=== PATIENT | female | born 1950 | race Caucasian/White ===

== ENCOUNTER → 2016-12-13 | Outpatient (CLI) | payer MEDICARE, OTHER ==
[~2016-12-13] MED LIST: AMOXICILLIN 50500 MG PO; BIOFLAX1000 MG PO; BROVANA15 MCG/2 M IH; CALCIUM 600 PLU1 TAB PO; CIPRO 500MG TA500 MG PO; EPA FISH OIL1000 MG PO; ESTRACE 1MG1 MG/TAB PO; FLOMAX0.4 MG PO; GLUCOSAMINE CHO1 CAP PO; LEVAQUIN 5500 MG/TA1 PO; LEVOTHYROXINE PO; LEVOXYL0.088 MG PO; LEVOXYL0.1 MG PO; MULTIVITAMIN FO1 CAP PO; NIACIN FLUSH F400 MG PO; NIACIN FLUSH FR1 CAP PO; NIACIN50 MG PO; NIACIN500 M3 PO; NORCO 325 MG-51 TAB PO; PERCOCET 325 MG1 TA2 PO; PERCR 7.5 PO; PHENERGAN 25 TA25 MG PO; PHENERGAN25 MG RC; PREDNISONE20 MG PO; PREMARIN0.625 MG PO; PRILOSEC10 MG PO; PULMICORT0.25 MG/2 IH; PYRIDIUM 100MG100 MG PO; RESTASIS0.05% OP; RESTASIS0.05% TOP; RT SPIRIVA18 MCG IH; SENOKOT S 50 MG1 TAB PO; SINGULAIR; SINGULAIR 110 MG/TAB PO; THEO-24 30300 MG/CAP PO; TOPAMAX50 MG PO; TOPIRAMATE; VITAMIN D1000 IU PO; ZYRTEC; ZYRTEC 10MG10 MG PO
== END ==
LOC: MC.RAD 09:51
DX: Z12.31 Encounter for screening mammogram for malignant neoplasm of breast (principal)

== ENCOUNTER 2017-06-22 11:01 | Emergency (ER) | payer MEDICARE, OTHER ==
[~2017-06-22] VITALS: Ht 157.5 cm; Wt 68.0 kg
[2017-06-22 11:16] VITALS: TEMP 99.1
[2017-06-22 11:54] LABS: PH 5 (5-8); SQUAMOUS EPITHELIAL 0-2 /hpf; URINE APPEARANCE Clear; URINE BACTERIA Rare /hpf; URINE BILIRUBIN Negative (NEGATIVE); URINE BLOOD 3+ (NEGATIVE); URINE COLOR Yellow; URINE GLUCOSE Negative (NEGATIVE); URINE KETONE Negative (NEGATIVE); URINE RBC >50 /hpf; URINE UROBILINOGEN Negative (NEGATIVE)
[2017-06-22 12:14] LABS: BASO # 0.1 (0.0-0.2); BASO % 1.5 % (0.0-2.0); EOS # 0.1 (0.0-0.7); EOS % 1.1 % (0-4.0); GRAN # 6.3 (1.4-6.5); GRAN % 77.1 % (42.2-75.2); HEMATOCRIT 46.2 % (37.0-47.0); HEMOGLOBIN 15.6 g/dl (12.5-16.0); LYMPH # 0.9 (1.2-3.4); LYMPH % 10.8 % (20.0-51.0); MEAN CELL VOLUME 96 fl (80.0-100.0); MEAN CORPUSCULAR HEMOGLOBIN 32 pg (27.0-31.0); MEAN CORPUSCULAR HGB CONC 34 g/dl (33.0-37.0); MEAN PLATELET VOLUME 9.6 fl (7.4-10.4); MONO # 0.8 (0.1-0.6); MONO % 9.3 % (1.7-9.3); PLATELET COUNT 190 K/mm3 (130-400); RED BLOOD COUNT 4.84 M/mm3 (4.10-5.30); REDCELL DISTRIBUTION WIDTH-CV 12.5 % (11.5-14.5); WHITE BLOOD COUNT 8.1 K/mm3 (4.8-10.8)
[2017-06-22 12:33] LABS: ADJUSTED CALCIUM 9.9 mg/dL (8.4-10.2); ALANINE AMINOTRANSFERASE 32 U/L (9-52); ALBUMIN 4.6 gm/dL (3.5-5.0); ALKALINE PHOSPHATASE 94 U/L (50-136); ANION GAP 14 mmol/L (7-16); BILIRUBIN,TOTAL 0.9 mg/dL (0.0-1.0); BLOOD UREA NITROGEN 19 mg/dL (7-17); C-REACTIVE PROTEIN 1.2 mg/dL (0.0-0.9); CALCIUM 10.4 mg/dL (8.4-10.2); CARBON DIOXIDE 21 mmol/L (22-30); CHLORIDE 107 mmol/L (98-107); CREATININE, serum 1.59 mg/dL (0.52-1.25); GLUCOSE 110 mg/dL (74-106); LIPASE 119 U/L (23-300); SODIUM 142 mmol/L (137-145); TOTAL PROTEIN 8.1 gm/dL (6.4-8.2)
[2017-06-22] MEDS ORDERED: RT SPIRIVA18 MCG IH (12:36)
[2017-06-22] MEDS ORDERED: BIAXIN 250MG T250 M1 PO (12:42)
[2017-06-22] MEDS ORDERED: ETHAMBUTOL HYD400 MG PO (12:42)
[2017-06-22] MEDS ORDERED: ETHAMBUTOL HYD100 MG PO (12:43)
[2017-06-22 12:48] LABS: TROPONIN-I < 0.012 ng/mL (0.000-0.034)
[2017-06-22] MEDS ORDERED: FLOMAX 0.40.4 MG/CAP PO (13:28)
[2017-06-22] MEDS ORDERED: ZOFRAN 4MG T4 MG/TAB PO (13:28)
[2017-06-22] MEDS ORDERED: MACROBID 1100 MG/CAP PO (13:28)
[2017-06-22] MEDS ORDERED: NORCO 325 MG-51 TAB PO (13:28)
[2017-06-22 13:54] VITALS: BP 131/84; PULSE 72
[2017-06-24] MEDS ORDERED: MACROBID 1100 MG/CAP PO (19:50)
== END 2017-06-22 13:54 | disposition home or self-care (01) ==
LOC: COL.ER 11:01
PROVIDERS: Emergency Medicine
DX: N20.2 Calculus of kidney with calculus of ureter (principal); J44.9 Chronic obstructive pulmonary disease, unspecified; Z87.442 Personal history of urinary calculi

== ENCOUNTER 2017-06-30 06:28 | Day surgery (SDC) | payer MEDICARE, OTHER ==
[~2017-06-30] VITALS: Ht 157.5 cm; Wt 84.9 kg
[~2017-06-30 06:28] MED LIST changes: +BIAXIN 250MG T250 M1 PO; +ETHAMBUTOL HYD100 MG PO; +ETHAMBUTOL HYD400 MG PO; +FLOMAX 0.40.4 MG/CAP PO; +MACROBID 1100 MG/CAP PO; +ZOFRAN 4MG T4 MG/TAB PO
[2017-06-30 07:14] VITALS: BP 127/69; PULSE 88; TEMP 98.8
[2017-06-30] MEDS ORDERED: RT SPIRIVA18 MCG IH (07:25)
[2017-06-30] MEDS ORDERED: TYLENOL 500MG500 MG PO (07:36)
[2017-06-30 09:30] VITALS: BP 109/63; PULSE 80; TEMP 97.3
[2017-06-30 09:45] VITALS: BP 104/58; PULSE 80
[2017-06-30 09:59] VITALS: TEMP 97.5
[2017-06-30 10:00] VITALS: BP 110/50; PULSE 80
[2017-06-30 10:15] VITALS: BP 103/59; PULSE 78
== END 2017-06-30 10:50 | disposition home or self-care (01) ==
LOC: SDCO 06:28
DX: N20.1 Calculus of ureter (principal); J30.9 Allergic rhinitis, unspecified; J45.909 Unspecified asthma, uncomplicated; Z90.49 Acquired absence of other specified parts of digestive tract; Z90.710 Acquired absence of both cervix and uterus; Z96.0 Presence of urogenital implants; Z82.49 Family history of ischemic heart disease and other diseases of the circulatory system; Z83.3 Family history of diabetes mellitus; Z80.6 Family history of leukemia
CPT/HCPCS: C1769; J0690; J1100; J2405; J2704; J2765; J3010; J7120

== ENCOUNTER → 2018-01-12 | Outpatient (CLI) | payer MEDICARE, OTHER ==
[~2018-01-12] MED LIST changes: +TYLENOL 500MG500 MG PO
== END ==
LOC: MC.RAD 10:41
DX: Z12.31 Encounter for screening mammogram for malignant neoplasm of breast (principal)

== ENCOUNTER → 2018-04-11 | Outpatient (CLI) | payer MEDICARE, OTHER | LOC: ZCOL.LAB 15:59 | DX: H60.91 Unspecified otitis externa, right ear (principal) ==

== ENCOUNTER → 2018-07-20 | Outpatient (CLI) | payer MEDICARE, OTHER | LOC: ZCOL.LAB 14:14 | DX: H60.91 Unspecified otitis externa, right ear (principal) ==

== ENCOUNTER 2018-12-09 23:05 | Emergency (ER) | payer MEDICARE, OTHER, BC ==
[~2018-12-09] VITALS: Ht 157.5 cm; Wt 70.5 kg
[2018-12-09 23:10] VITALS: TEMP 98.5
[2018-12-10] MEDS ORDERED: AMOXICILLIN 8751 TAB PO (01:38)
[2018-12-10] MEDS ORDERED: VENTOLIN0.09 MG IH (01:38)
[2018-12-10] MEDS ORDERED: PREDNISONE20 MG PO (01:38)
[2018-12-10 03:33] LABS: BASO # 0.1 (0.0-0.2); BASO % 0.8 % (0.0-2.0); EOS # 0.1 (0.0-0.7); GRAN # 6.2 (1.4-6.5); GRAN % 80.2 % (42.2-75.2); HEMOGLOBIN 15.4 g/dl (12.5-16.0); LYMPH # 0.8 (1.2-3.4); LYMPH % 10.1 % (20.0-51.0); MEAN CELL VOLUME 95 fl (80.0-100.0); MEAN CORPUSCULAR HEMOGLOBIN 32 pg (27.0-31.0); MEAN CORPUSCULAR HGB CONC 34 g/dl (33.0-37.0); MEAN PLATELET VOLUME 9.8 fl (7.4-10.4); MONO # 0.6 (0.1-0.6); MONO % 7.6 % (1.7-9.3); PLATELET COUNT 176 K/mm3 (130-400); RED BLOOD COUNT 4.87 M/mm3 (4.10-5.30); REDCELL DISTRIBUTION WIDTH-CV 13.1 % (11.5-14.5)
[2018-12-10 03:54] LABS: ALBUMIN 4.3 gm/dL (3.5-5.0); BILIRUBIN,TOTAL 0.5 mg/dL (0.0-1.0); CALCIUM 10.5 mg/dL (8.4-10.2); CREATININE, serum 1.26 mg/dL (0.52-1.25); POTASSIUM 4.2 mmol/L (3.4-5.0); TOTAL PROTEIN 8.1 gm/dL (6.4-8.2)
[2018-12-10 04:20] LABS: TROPONIN-I 0.044 ng/mL (0.000-0.035)
[2018-12-10] MEDS ORDERED: BACTRIM DS 8001 TAB PO (04:33)
[2018-12-10] MEDS ORDERED: BROVANA15 MCG/2 M (04:33)
[2018-12-10] MEDS ORDERED: CALCIUM 600MG+D1 TAB PO (04:35)
[2018-12-10] MEDS ORDERED: ZYRTEC 10MG10 MG PO (04:35)
[2018-12-10] MEDS ORDERED: MULTI VITAMINS1 TAB PO (04:38)
[2018-12-10] MEDS ORDERED: DECADRON OPHTH D5 ML OT (04:49)
[2018-12-10 09:12] VITALS: BP 121/64; PULSE 100
== END 2018-12-10 09:40 | disposition short-term general hospital (02) ==
LOC: COL.ER 23:05
PROVIDERS: Emergency Medicine
DX: R06.02 Shortness of breath (principal); R07.89 Other chest pain; J44.9 Chronic obstructive pulmonary disease, unspecified
CPT/HCPCS: A4216; J0696; J7512

== ENCOUNTER → 2019-02-13 | Outpatient (CLI) | payer MEDICARE, OTHER ==
[~2019-02-13] MED LIST changes: +AMOXICILLIN 8751 TAB PO; +BACTRIM DS 8001 TAB PO; +BROVANA15 MCG/2 M; +CALCIUM 600MG+D1 TAB PO; +DECADRON OPHTH D5 ML OT; +MULTI VITAMINS1 TAB PO; +VENTOLIN0.09 MG IH
== END ==
LOC: MC.RAD 15:16
DX: Z12.31 Encounter for screening mammogram for malignant neoplasm of breast (principal)

== ENCOUNTER → 2019-04-11 | Outpatient (CLI) | payer MEDICARE, OTHER | LOC: COL.RAD 08:29 | DX: Z01.812 Encounter for preprocedural laboratory examination (principal); R41.82 Altered mental status, unspecified; R47.81 Slurred speech | CPT/HCPCS: A9585 ==

== ENCOUNTER 2020-01-10 16:22 | Emergency (ER) | payer MEDICARE, OTHER ==
[~2020-01-10] VITALS: Ht 157.5 cm; Wt 60.0 kg
[2020-01-10 16:37] VITALS: TEMP 98.7
[2020-01-10 16:54] LABS: BASO # 0.1 (0.0-0.2); BASO % 1.4 % (0.0-2.0); EOS # 0.2 (0.0-0.7); EOS % 3.9 % (0-4.0); GRAN # 3.3 (1.4-6.5); GRAN % 58.3 % (42.2-75.2); HEMATOCRIT 47.4 % (37.0-47.0); HEMOGLOBIN 15.6 g/dl (12.5-16.0); LYMPH # 1.5 (1.2-3.4); MEAN CELL VOLUME 96 fl (80.0-100.0); MEAN CORPUSCULAR HEMOGLOBIN 32 pg (27.0-31.0); MEAN CORPUSCULAR HGB CONC 33 g/dl (33.0-37.0); MEAN PLATELET VOLUME 9.3 fl (7.4-10.4); MONO # 0.6 (0.1-0.6); MONO % 10.2 % (1.7-9.3); PLATELET COUNT 216 K/mm3 (130-400); RED BLOOD COUNT 4.92 M/mm3 (4.10-5.30)
[2020-01-10 17:05] LABS: ALANINE AMINOTRANSFERASE 30 U/L (4-34); ALBUMIN 4.6 gm/dL (3.5-5.0); ALKALINE PHOSPHATASE 79 U/L (50-136); ANION GAP 9 mmol/L (7-16); AST,SGOT 38 U/L (15-37); BILIRUBIN,TOTAL 0.7 mg/dL (0.0-1.0); BLOOD UREA NITROGEN 15 mg/dL (7-17); CALCIUM 10.1 mg/dL (8.4-10.2); CARBON DIOXIDE 25 mmol/L (22-30); CHLORIDE 106 mmol/L (98-107); CREATININE, serum 1.04 (0.52-1.25); GLUCOSE 134 mg/dL (74-106); LIPASE 369 U/L (23-300); POTASSIUM 3.7 mmol/L (3.4-5.0); SODIUM 140 mmol/L (137-145); TOTAL PROTEIN 8.1 gm/dL (6.4-8.2)
[2020-01-10 17:12] LABS: C-REACTIVE PROTEIN < 0.5 mg/dL (0.0-0.9)
[2020-01-10 17:40] LABS: COLLECTION METHOD CLEAN CATCH
[2020-01-10 17:49] LABS: AMORPHOUS CRYSTAL Present /uL; PH 7 (5-8); SQUAMOUS EPITHELIAL None Seen /hpf; URINE APPEARANCE Hazy; URINE BACTERIA Rare /hpf; URINE BILIRUBIN Negative (NEGATIVE); URINE BLOOD Negative (NEGATIVE); URINE COLOR Yellow; URINE GLUCOSE Negative (NEGATIVE); URINE KETONE Negative (NEGATIVE); URINE LEUKOCYTE ESTERASE Negative (NEGATIVE); URINE NITRATE Negative (NEGATIVE); URINE PROTEIN(semi-quant) Negative (NEGATIVE); URINE RBC 0-2 /hpf; URINE UROBILINOGEN Negative (NEGATIVE)
[2020-01-10] MEDS ORDERED: NORCO 325 MG-51 TAB PO (19:20)
[2020-01-10] MEDS ORDERED: ZOFRAN 4MG T4 MG/TAB PO (19:20)
[2020-01-10] MEDS ORDERED: FLOMAX 0.40.4 MG/CAP PO (19:20)
[2020-01-10 19:34] VITALS: BP 115/60; PULSE 72
== END 2020-01-10 19:35 | disposition home or self-care (01) ==
LOC: COL.ER 16:22
PROVIDERS: Emergency Medicine
DX: N20.1 Calculus of ureter (principal); G43.909 Migraine, unspecified, not intractable, without status migrainosus; E03.9 Hypothyroidism, unspecified; Z90.89 Acquired absence of other organs; Z90.722 Acquired absence of ovaries, bilateral; Z87.442 Personal history of urinary calculi
CPT/HCPCS: J7030; Q9967

== ENCOUNTER → 2020-03-26 | Outpatient (CLI) | payer MEDICARE, OTHER | LOC: MC.RAD 10:53 | DX: Z12.31 Encounter for screening mammogram for malignant neoplasm of breast (principal) ==

== ENCOUNTER → 2020-04-15 | Outpatient (CLI) | payer MEDICARE, OTHER | LOC: COL.RAD 07:41 | DX: K30 Functional dyspepsia (principal) | CPT/HCPCS: A9541 ==

== ENCOUNTER 2020-06-24 07:35 | Day surgery (SDC) | payer MEDICARE, OTHER ==
[~2020-06-24] VITALS: Ht 157.5 cm; Wt 62.7 kg
[2020-06-24 08:06] VITALS: BP 130/79; PULSE 83; TEMP 98.5
--- NOTE | 2020-06-24 08:16 | NUR ---
TO RM AT 0737- CALL LIGHT IN REACH FRIEND LOLI WILL BOTTOM SANDER PATIENT
[2020-06-24] MEDS ORDERED: FOSAMAX 70MG TA70 MG PO (08:22)
[2020-06-24] MEDS ORDERED: LIPITOR 40MG TA40 MG PO (08:22)
[2020-06-24] MEDS ORDERED: PLAVIX 75MG TAB75 MG PO (08:24)
[2020-06-24] MEDS ORDERED: FISH OIL 1000MG1 CAP PO (08:27)
[2020-06-24] MEDS ORDERED: LEVOXYL0.075 MG PO (08:28)
[2020-06-24] MEDS ORDERED: REGLAN 5MG T5 MG/TAB PO (08:29)
[2020-06-24] MEDS ORDERED: MUCINEX 60600 MG/TA1 PO (08:30)
[2020-06-24] MEDS ORDERED: SALAGEN 5MG TAB5 MG PO (08:31)
[2020-06-24] MEDS ORDERED: RESTASIS MULTI5.5 ML OU (08:32)
[2020-06-24] MEDS ORDERED: STIOLTO RESPIMAT4 GM IH (08:34)
[2020-06-24] MEDS ORDERED: OXYGEN MC (08:37)
[2020-06-24 09:15] VITALS: BP 143/93; PULSE 70; TEMP 98.2
--- NOTE | 2020-06-24 09:15 | NUR ---
TO BAY3 PER CART FROM ENDOSCOPY. AMBULATED TO BATHROOM. FROM BATHROOM AMBULATED TO RM AND TOLERATED WELL.. DR CARDONA TALKED WITH PATIENT IN PROCEDURE RM. RECEIVED WATER AND ADAM. PUDDING.
[2020-06-24 09:30] VITALS: BP 138/83; PULSE 66
--- NOTE | 2020-06-24 09:30 | NUR ---
ATE 100% AND TOLERATED WELL. RECEIVED DISCHARGE INSTRUCTIOINS AND VERBALIZED UNDERSTANDING. DRESSED SELF AND CALLED FRIEND FOR RIDE.
--- NOTE | 2020-06-24 09:45 | NUR ---
DISCHARGED PER WC BY NURSING STAFF TO PRIVATE CAR IN CARE OF FRIEND LOLI.
== END 2020-06-24 09:54 | disposition home or self-care (01) ==
LOC: SDCO 07:35
DX: Z12.11 Encounter for screening for malignant neoplasm of colon (principal); Z86.010 Personal history of colon polyps; E03.9 Hypothyroidism, unspecified; R63.4 Abnormal weight loss; R63.0 Anorexia; K31.84 Gastroparesis; Z20.828 Contact with and (suspected) exposure to other viral communicable diseases; Z79.899 Other long term (current) drug therapy
CPT/HCPCS: J7030

== ENCOUNTER → 2021-07-16 | Outpatient (CLI) | payer MEDICARE ==
[~2021-07-16] MED LIST changes: +FISH OIL 1000MG1 CAP PO; +FOSAMAX 70MG TA70 MG PO; +LEVOXYL0.075 MG PO; +LIPITOR 40MG TA40 MG PO; +MUCINEX 60600 MG/TA1 PO; +OXYGEN MC; +PLAVIX 75MG TAB75 MG PO; +REGLAN 5MG T5 MG/TAB PO; +RESTASIS MULTI5.5 ML OU; +SALAGEN 5MG TAB5 MG PO; +STIOLTO RESPIMAT4 GM IH
== END ==
LOC: MC.RAD 11:13
DX: Z12.31 Encounter for screening mammogram for malignant neoplasm of breast (principal)

== ENCOUNTER → 2023-08-05 | Outpatient (CLI) | payer MEDICARE, OTHER | LOC: CANSCHCLI → MC.RAD 13:00 | DX: Z12.31 Encounter for screening mammogram for malignant neoplasm of breast (principal) ==

== ENCOUNTER 2023-09-13 06:52 | Day surgery (SDC) | payer MEDICARE, OTHER ==
[~2023-09-13] VITALS: Ht 157.5 cm; Wt 75.8 kg
[2023-09-13] MEDS ORDERED: BREZTRI AEROS10.7 GM IH (07:09)
[2023-09-13] MEDS ORDERED: DUPIXENT300 MG/2 M SQ (07:13)
[2023-09-13] MEDS ORDERED: PRILOSEC 20MG20 MG PO (07:16)
[2023-09-13 09:05] VITALS: BP 111/60; PULSE 79; TEMP 97.1
[2023-09-13 09:20] VITALS: BP 120/77; PULSE 59
[2023-09-13 09:35] VITALS: BP 124/72; PULSE 67
[2023-09-13 11:32] VITALS: BP 130/78; PULSE 75; TEMP 98.7
--- NOTE | 2023-09-13 11:34 | NUR ---
0702 PT AMBULATORY TO BAY 1 W/ STEADY GAIT, BREATHING EVEN AND UNLABORED. PT IS ALERT AND ORIENTED. CONSENTS REVIEWED AND SIGNED BY PT. IV ESTABLISHED. LR INFUSING VIA GRAVITY AT KVO. CALL LIGHT IN REACH. WARM BLANKET PROVIDED.
--- NOTE | 2023-09-13 13:09 | NUR ---
0905: PATIENT TO BAY 1 FROM ENDO SUITE. AMBULATED FROM COT TO RECLINER X2. ALERT AND ORIENTED X4. REPORT RECEIVED. DENIES PAIN OR NAUSEA. REQUESTING BLUEBERRY MUFFIN AND WATER. VSS. BREATHING EVEN AND UNLABORED. WARM BLANKET PROVIDED. NO FURTHER NEEDS NOTED. CALL LIGHT IN REACH. RDBOLMED-GL-PHB AT BEDSIDE. 0920: PATIENT ALERT AND ORIENTED X4. TOLERATING MUFFIN AND WATER. VSS. DENIES PAIN OR NAUSEA. RESTING IN RECLINER. CALL LIGHT IN REACH. 0935: PATIENT ALERT AND ORIENTED X4. CONTINUES TO TOLERATE MUFFIN AND WATER. VSS. DENIES PAIN OR NAUSEA. RESTING IN RECLINER. CALL LIGHT IN REACH. 0945: DR. CARDONA IN TO SEE PATIENT AT THIS TIME. IV DC'D AT THIS TIME. 1000: DISCHARGE EDUCATION DONE AT THIS TIME. PATIENT STATED UNDERSTANDING OF INSTRUCTIONS. DISCHARGE PAPERWORK GIVEN TO PATIENT. DENIES ANY ASSISTANCE WITH DRESSING. 1005: PATIENT OFF UNIT PER WHEELCHAIR AT THIS TIME. PATIENT DISCHARGED TO HOME WITH FAMILY PER PERSONAL VEHICLE.
== END 2023-09-13 10:05 | disposition home or self-care (01) ==
LOC: SDCO 06:52
DX: Z12.11 Encounter for screening for malignant neoplasm of colon (principal); D12.2 Benign neoplasm of ascending colon; D12.3 Benign neoplasm of transverse colon; K64.0 First degree hemorrhoids; E03.9 Hypothyroidism, unspecified; G47.33 Obstructive sleep apnea (adult) (pediatric)
CPT/HCPCS: J2704; J7120

== ENCOUNTER 2024-02-06 19:12 | Emergency (ER) | payer MEDICARE, OTHER ==
[~2024-02-06] VITALS: Ht 157.5 cm; Wt 77.3 kg
[~2024-02-06 19:12] MED LIST changes: +BREZTRI AEROS10.7 GM IH; +DUPIXENT300 MG/2 M SQ; +PRILOSEC 20MG20 MG PO
[2024-02-06 19:15] VITALS: TEMP 97.9
[2024-02-06] MEDS ORDERED: Albuterol/Ipratropium 3 MG-0.5 MG/3 ML Neb Soln IH SCH (20:15)
[2024-02-06 20:31] LABS: BASO # 0.1 K/mm3 (0.0-0.2); EOS # 0.2 K/mm3 (0.0-0.7); EOS % 3.2 % (0.0-4.0); GRAN % 68.7 % (42.2-75.2); HEMATOCRIT 45.3 % (37.0-47.0); HEMOGLOBIN 14.9 g/dl (12.5-16.0); LYMPH % 16.2 % (20.0-51.0); MEAN CELL VOLUME 98 fl (80.0-100.0); MEAN CORPUSCULAR HEMOGLOBIN 32 pg (27-31); MEAN CORPUSCULAR HGB CONC 33 g/dl (33.0-37.0); MEAN PLATELET VOLUME 9.3 fl (7.4-10.4); MONO # 0.6 K/mm3 (0.1-0.6); MONO % 10.7 % (1.7-9.3); PLATELET COUNT 194 K/mm3 (130-400); RED BLOOD COUNT 4.62 M/mm3 (4.10-5.30); REDCELL DISTRIBUTION WIDTH-CV 12.9 % (11.5-14.5)
[2024-02-06 20:49] LABS: ALANINE AMINOTRANSFERASE 27 U/L (0-55); ALBUMIN 3.8 g/dL (3.4-4.8); ALKALINE PHOSPHATASE 85 U/L (40-150); ANION GAP 9 mmol/L (7-16); AST,SGOT 27 U/L (5-34); BILIRUBIN,TOTAL 0.5 mg/dL (0.2-1.2); BLOOD UREA NITROGEN 21 mg/dL (10-20); C-REACTIVE PROTEIN 0.11 mg/dL (0.00-0.50); CALCIUM 9.8 mg/dL (8.4-10.2); CHLORIDE 111 mEq/L (98-107); CREATININE, serum 0.89 mg/dL (0.57-1.11); GLUCOSE 106 mg/dL (70-99); MAGNESIUM 1.8 mg/dL (1.6-2.6); SODIUM 144 mEq/L (136-145); TOTAL PROTEIN 7.3 g/dl (6.2-8.1)
[2024-02-06 20:55] LABS: TROPONIN-I < 0.010 ng/mL (0.00-0.033)
[2024-02-06] MEDS ORDERED: PREDNISONE20 MG PO (22:08)
[2024-02-06] MEDS ORDERED: LEVAQUIN 750MG750 M1 PO (22:08)
[2024-02-06] MEDS ORDERED: levoFLOXacin 750 MG TAB PO ONE (22:15)
[2024-02-06] MEDS ORDERED: predniSONE 20 MG TAB PO ONE (22:15)
[2024-02-06 23:05] VITALS: BP 148/90; PULSE 66
== END 2024-02-06 23:08 | disposition home or self-care (01) ==
LOC: COL.ER 19:12
PROVIDERS: Emergency Medicine
DX: J44.1 Chronic obstructive pulmonary disease with (acute) exacerbation (principal)
CPT/HCPCS: J7512

== ENCOUNTER 2024-05-22 17:15 | Emergency (ER) | payer MEDICARE, OTHER ==
[~2024-05-22] VITALS: Ht 157.5 cm; Wt 83.2 kg
[~2024-05-22 17:15] MED LIST changes: +LEVAQUIN 750MG750 M1 PO
[2024-05-22 17:20] VITALS: TEMP 98.5
[2024-05-22 19:11] VITALS: BP 149/95; PULSE 82
== END 2024-05-22 19:11 | disposition home or self-care (01) ==
LOC: COL.ER 17:15
DX: S49.92XA Unspecified injury of left shoulder and upper arm, initial encounter (principal); Z79.02 Long term (current) use of antithrombotics/antiplatelets; W19.XXXA Unspecified fall, initial encounter; Y92.009 Unspecified place in unspecified non-institutional (private) residence as the place of occurrence of the external cause

== ENCOUNTER → 2024-07-03 | Outpatient (CLI) | payer MEDICARE | LOC: COL.RAD 14:30 | DX: I63.9 Cerebral infarction, unspecified (principal) ==

== ENCOUNTER 2024-07-13 09:46 | Day surgery (SDC) | payer MEDICARE, OTHER ==
[2024-07-13] VITALS (10 sets, daily range): BP systolic 105–152; BP diastolic 60–81; PULSE 75–82; TEMP 98.5
[~2024-07-13] VITALS: Ht 157.6 cm; Wt 81.1 kg
[~2024-07-13 09:46] MED LIST changes: +DUPIXENT200 MG/1.1 SQ; -DUPIXENT300 MG/2 M SQ; -LEVOXYL0.075 MG PO; +LR 1,000 ML IV SCH; -MUCINEX 60600 MG/TA1 PO; +MUCINEX1200 MG PO
[2024-07-13 10:54] LABS: HEMATOCRIT 40.5 % (37.0-47.0); HEMOGLOBIN 13.6 g/dl (12.5-16.0); MEAN CELL VOLUME 96 fl (80.0-100.0); MEAN CORPUSCULAR HEMOGLOBIN 32 pg (27-31); MEAN CORPUSCULAR HGB CONC 34 g/dl (33.0-37.0); MEAN PLATELET VOLUME 9.8 fl (7.4-10.4); PLATELET COUNT 171 K/mm3 (130-400); RED BLOOD COUNT 4.23 M/mm3 (4.10-5.30); REDCELL DISTRIBUTION WIDTH-CV 12.2 % (11.5-14.5)
[2024-07-13 11:10] LABS: CALCIUM 9.2 mg/dL (8.4-10.2); CREATININE, serum 0.94 mg/dL (0.57-1.11); POTASSIUM 3.8 mEq/L (3.5-4.5)
[2024-07-13 11:12] LABS: INR 1.1 (0.8-3.0); PROTHROMBIN TIME 11.6 SECONDS (9.7-12.8)
[2024-07-13] MEDS ORDERED: PROTONIX20 MG PO (11:58)
[2024-07-13] MEDS ORDERED: ZYRTEC 10MG10 MG PO (11:59)
[2024-07-13] MEDS ORDERED: PLETAL 100MG T100 MG PO (11:59)
[2024-07-13] MEDS ORDERED: ALBUTEROL1.25 MG/3 IH (12:05)
--- NOTE | 2024-07-13 16:20 | NUR ---
DC instructions reviewed with pt and daughter. Both express understanding. Pt has rested comfortably following procedure. First time out of be after bedrest period pt was assited by standby to toilet, gait steady. Pt was free of complaints with activity. She has been resting in bed or sitting up on edge of bed since. She ate pudding cups, muffin and sandwich. No issues swallowing. Respirations have been even and unlabored while resting, but pt did become short of breath walking back from toilet. This resolved shortly after returning to bed with oxygen. IV DC'd, site wrapped with coban. She is assisted out to daughter's car by wheelchair for ride home.
== END 2024-07-13 16:20 | disposition home or self-care (01) ==
LOC: COL.CAR 09:46
PROVIDERS: Internal Medicine Cardiovascular Disease
DX: I47.10 Supraventricular tachycardia, unspecified (principal); E78.2 Mixed hyperlipidemia; I36.1 Nonrheumatic tricuspid (valve) insufficiency; I34.9 Nonrheumatic mitral valve disorder, unspecified; G47.33 Obstructive sleep apnea (adult) (pediatric); I51.9 Heart disease, unspecified; Z95.818 Presence of other cardiac implants and grafts; Z99.89 Dependence on other enabling machines and devices; Z86.73 Personal history of transient ischemic attack (TIA), and cerebral infarction without residual deficits; Z96.0 Presence of urogenital implants; Z79.01 Long term (current) use of anticoagulants
CPT/HCPCS: J7120

== ENCOUNTER → 2024-08-06 | Outpatient (CLI) | payer MEDICARE, OTHER ==
[~2024-08-06] MED LIST changes: +ALBUTEROL1.25 MG/3 IH; +Iohexol 300 - 100 ML VIAL IV ONE; -LR 1,000 ML IV SCH; +NS 100 ML IV SCH; +PLETAL 100MG T100 MG PO; +PROTONIX20 MG PO
== END ==
LOC: COL.RAD 08:46
DX: I63.9 Cerebral infarction, unspecified (principal)
CPT/HCPCS: Q9967